=== PATIENT | male | born 1955 | race African-American/Black ===

== ENCOUNTER 2016-10-02 13:07 | Inpatient (IN) | payer OTHER ==
[2016-10-02 13:43] VITALS: BMI 29.5
--- NOTE | 2016-10-02 15:08 | HP ---
COWS - Scale Resting Pulse: 1= [place] 81-100 Sweatin=Flushed/Facial Moisture Restless Observation: 1= Difficult to Sit Still Pupil Size: 0= Normal to Room Light Bone or Joint Aches: 2= Severe Diffuse Aches Runny Nose/ Eye Tearin= Runny Nose/Eyes GI Upset > 30mins: 1= Stomach Cramp Tremor Observation: 2= Slight Tremor Visible Yawning Observation: 2= >3x During Session Anxiety or Irritability: 1=Feels Anxious/Irritable Goose Flesh Skin: 3=Piloerection COWS Score: 17 Admission ROS S - HPI Chief Complaint: I am here to detox. Allergies/Adverse Reactions: Allergies Allergy/AdvReac Type Severity Reaction Status Date / Time No Known Allergies Allergy Verified 10/02/16 14:11 History of Present Illness: pt is a 61yr old male with a history of heroin dependence only seeking detox for treatment. Exam Limitations: No Limitations - Ebola screening Have you traveled outside of the country in the last 21 days: No Have you had contact with anyone from an Ebola affected area: No Have you been sick,other than usual withdrawal symptoms: No Do you have a fever: No - Review of Systems Constitutional: Chills, Diaphoresis, Loss of Appetite, Night Sweats EENT: reports: No Symptoms Reported Respiratory: reports: No Symptoms reported Cardiac: reports: No Symptoms Reported GI: reports: Constipated, Poor Appetite, Poor Fluid Intake, Abdominal cramping : reports: No Symptoms Reported Musculoskeletal: reports: Back Pain Integumentary: reports: Flushing, Sweating Neuro: reports: Headache, Tingling, Tremors Endocrine: reports: Excessive Sweating, Flushing, Intolerance to Cold, Intolerance to Heat Hematology: reports: No Symptoms Reported Psychiatric: reports: Judgement Intact, Mood/Affect Appropiate, Orientated x3, Agitated, Anxious Other Systems: Reviewed and Negative Patient History - Patient Medical History Hx Anemia: No Hx Asthma: No Hx Chronic Obstructive Pulmonary Disease (COPD): No Hx Cancer: No Hx Cardiac Disorders: No Hx Congestive Heart Failure: No Hx Hypertension: Yes Hx Hypercholesterolemia: No Hx Pacemaker: No HX Cerebrovascular Accident: No Hx Seizures: No Hx Dementia: No Hx Diabetes: No Hx Gastrointestinal Disorders: No Hx Liver Disease: No Hx Genitourinary Disorders: Yes (prostate enlarge) Hx Sexually Transmitted Disorders: No Hx Renal Disease (ESRD): No Hx Thyroid Disease: No Hx Human Immunodeficiency Virus (HIV): No (negative) Hx Hepatitis C: No (negative/ received tx two years ago, undetectable today) Hx Depression: No Hx Suicide Attempt: No (denies) Hx Bipolar Disorder: No Hx Schizophrenia: No - Patient Surgical History Past Surgical History: No Hx Neurologic Surgery: No Hx Cataract Extraction: No Hx Cardiac Surgery: No Hx Lung Surgery: No Hx Breast Surgery: No Hx Breast Biopsy: No Hx Abdominal Surgery: No Hx Appendectomy: No Hx Cholecystectomy: No Hx Genitourinary Surgery: No Hx Section: No Hx Orthopedic Surgery: No Anesthesia Reaction: No - PPD History Previous Implant?: Yes Documented Results: Negative w/o proof PPD to be Administered?: Yes - Reproductive History Patient is a Female of Child Bearing Age (11 -55 yrs old): No - Smoking Cessation Smoking history: Current every day smoker Have you smoked in the past 12 months: Yes Aproximately how many cigarettes per day: 10 Cigars Per Day: 0 Hx Chewing Tobacco Use: No Initiated information on smoking cessation: Yes 'Breaking Loose' booklet given: 10/02/16 - Substance & Tx. History Hx Alcohol Use: No Hx Substance Use: Yes Substance Use Type: Heroin Hx Substance Use Treatment: Yes - Substances Abused Heroin Route: Injection Frequency: Daily Amount used: 3 bags Age of first use: 22 Date of Last Use: 10/02/16 Family Disease History - Family Disease History Family History: Denies Admission Physical Exam BHS - Vital Signs Vital Signs: Vital Signs - 24 hr 10/02/16 13:41 Temperature 97.5 F L Pulse Rate 85 Respiratory 18 Rate Blood Pressure 130/88 - Physical General Appearance: Yes: Appropriately Dressed, Moderate Distress, Tremorous, Irritable, Sweating, Anxious HEENTM: Yes: Normal Voice Respiratory: Yes: Lungs Clear, Normal Breath Sounds, No Respiratory Distress Neck: Yes: No masses,lesions,Nodules Breast: Yes: Within Normal Limits Cardiology: Yes: Regular Rhythm, Regular Rate, S1, S2 Abdominal: Yes: Normal Bowel Sounds, Non Tender, Soft Genitourinary: Yes: Within Normal Limits Back: Yes: Normal Inspection Musculoskeletal: Yes: full range of Motion, Back pain Extremities: Yes: Normal Capillary Refill, Normal Inspection, Non-Tender, Tremors Neurological: Yes: Fully Oriented, Alert, Normal Response Integumentary: Yes: Normal Color, Diaphoresis, Track Valerio Lymphatic: Yes: Within Normal Limits - Diagnostic (1) Opioid dependence with withdrawal Current Visit: Yes Status: Chronic (2) Hypertension Current Visit: Yes Status: Chronic Qualifiers: Hypertension type: essential hypertension Qualified Code(s): I10 - Essential (primary) hypertension (3) BPH (benign prostatic hyperplasia) Current Visit: Yes Status: Chronic Qualifiers: Prostatic enlargement morphology: unspecified morphology Lower urinary tract symptom presence: symptoms absent Qualified Code(s): N40.0 - Enlarged prostate without lower urinary tract symptoms Cleared for Admission [facility] - Detox or Rehab [facility] Level of Care: Medically Managed Detox Regimen/Protocol: Methadone [facility] Breath Alcohol Content Breath Alcohol Content: 0 Urine Drug Screen - Results Drug Screen Negative: No Urine Drug Screen Results: OPI-Opiates, BZO-Benzodiazepines, MTD-Methadone, OXY- Oxycodone
[2016-10-02] MEDS ORDERED: MAG HYDROX/AL HYDROX/SIMETH 30 ML UNIT-DOSE CUP PO PRN (15:10)
[2016-10-02] MEDS ORDERED: IBUPROFEN 400 MG TABLET (FP) PO PRN (15:10)
[2016-10-02] MEDS ORDERED: MENTHOL/PHENOL 1 EACH UD MM PRN (15:10)
[2016-10-02] MEDS ORDERED: ACETAMINOPHEN 325 MG TABLET (FP) PO PRN (15:10)
[2016-10-02] MEDS ORDERED: MAGNESIUM HYDROX 2400MG/30ML ORAL SUSPENSION 30 ML CUP PO PRN (15:10)
[2016-10-02] MEDS ORDERED: MAGNESIUM CITRATE 300 ML BOTTLE PO PRN (15:10)
[2016-10-02] MEDS ORDERED: P-EPHED 60MG/TRIPROLIDI 2.5MG TABLET PO PRN (15:10)
[2016-10-02] MEDS ORDERED: NICOTINE POLACRILEX 4 MG GUM BUC PRN (15:10)
[2016-10-02] MEDS ORDERED: LOPERAMIDE HCL 2 MG CAPSULE PO PRN (15:10)
[2016-10-02] MEDS ORDERED: guaiFENesin/D-METHORPHAN HB 10 ML UNIT-DOSE CUPS PO PRN (15:10)
[2016-10-02] MEDS ORDERED: METHADONE HCL 10 MG TABLET (FOR DETOX USE ONLY) PO ONE ×2 (15:30→23:00)
[2016-10-02] MEDS: diazePAM 5 MG TABLET PO PRN ×2 (15:38→22:20)
[2016-10-02] MEDS: GABAPENTIN 300 MG CAPSULE (FP) PO SCH ×2 (15:39→22:19)
[2016-10-02 19:24] LABS: URINE APPEARANCE CLEAR; URINE BILIRUBIN NEGATIVE (NEGATIVE); URINE COLOR YELLOW; URINE GLUCOSE (UA) NEGATIVE (NEGATIVE); URINE KETONE NEGATIVE (NEGATIVE); URINE LEUK ESTERASE NEGATIVE (NEGATIVE); URINE NITRITE NEGATIVE (NEGATIVE); URINE PROTEIN NEGATIVE (NEGATIVE); URINE UROBILINOGEN 2.0 E.U/dl E.U./dl (0.2-1.0)
[2016-10-02 19:25] LABS: URINE BLOOD 1+ (NEGATIVE)
[2016-10-02 19:41] LABS: URINE MUCUS RARE; URINE RBC 18 /hpf (0-3); URINE WBC 3 /hpf (3-5)
[2016-10-02] MEDS: THIAMINE HCL 100 MG TABLET (FP) PO SCH (22:19)
[2016-10-02] MEDS: diphenhydrAMINE HCL 50 MG CAPSULE PO PRN (22:20)
[2016-10-03] MEDS: diazePAM 5 MG TABLET PO PRN ×3 (05:32→22:27)
[2016-10-03] MEDS: GABAPENTIN 300 MG CAPSULE (FP) PO SCH ×3 (05:33→22:27)
[2016-10-03 09:37] LABS: HIV 1 & 2 AB NEGATIVE; HIV 1 AGp24 NEGATIVE
[2016-10-03] MEDS: TAMSULOSIN HCL 0.4 MG CAP.ER.24H (FP) PO SCH (09:47)
[2016-10-03] MEDS ORDERED: METHADONE HCL 10 MG TABLET (FOR DETOX USE ONLY) PO ONE (10:00)
[2016-10-03] MEDS: amLODIPine BESYLATE 5 MG TABLET (FP) PO SCH (10:10)
[2016-10-03] MEDS: TRIAMTERENE AND HCTZ - 37.5 MG/25 MG CAPSULE PO SCH (10:10)
[2016-10-03] MEDS: NICOTINE 21 MG/24 HOURS TOPICAL PATCH TD SCH (10:11)
[2016-10-03] MEDS: PRENATAL VITAMINS W/ FOLIC ACID TABLET (FP) PO SCH (10:11)
[2016-10-03 10:17] LABS: MCH 28.2 pg (25.7-33.7); MCHC 32.7 g/dl (32.0-35.9); MEAN CELL VOLUME 86.5 fl (80-96); MEAN PLT VOLUME 10.1 fl (7.5-11.1); RDW 15.4 % (11.9-15.9); WHITE BLOOD COUNT 6.6 K/mm3 (4.0-10.0)
[2016-10-03 10:33] LABS: ALBUMIN 4.1 g/dl (3.4-5.0); ALK PHOS 117 U/L (45-117); ANION GAP 6 (8-16); BILIRUBIN,TOTAL 0.6 mg/dL (0.2-1.0); CALCIUM 9.4 mg/dL (8.5-10.1); CO2 31 mmol/L (21-32); CREATININE 1.1 mg/dL (0.7-1.3); GLUCOSE,RANDOM 93 mg/dL (74-106); SGOT/AST 13 U/L (15-37); SGPT/ALT 14 U/L (12-78); TOT PROT 7.6 g/dl (6.4-8.2)
--- NOTE | 2016-10-03 10:59 | PN ---
BHS COWS - Scale Resting Pulse: 0= [place] 80 or Below Sweatin=Flushed/Facial Moisture Restless Observation: 1= Difficult to Sit Still Pupil Size: 0= Normal to Room Light Bone or Joint Aches: 2= Severe Diffuse Aches Runny Nose/ Eye Tearin= Runny Nose/Eyes GI Upset > 30mins: 2= Nausea/Diarrhea Tremor Observation of Outstretched Hands: 2= Slight Tremor Visible Yawning Observation: 1= 1-2x During Session Anxiety or Irritability: 2=Irritable/Anxious Goose Flesh Skin: 0=Smooth Skin COWS Score: 14 BHS Progress Note (SOAP) Subjective: Anxiety,tremors,sweating,interrupted sleep,restless Objective: 10/03/16 10:58 Vital Signs - 8 hr 10/03/16 10/03/16 10/03/16 03:30 06:05 09:11 Temperature 95.7 F L 97.8 F Pulse Rate 56 L 59 L Respiratory 18 16 18 Rate Blood Pressure 148/96 126/85 Laboratory Tests 10/02/16 10/02/16 10/03/16 13:00 13:00 06:00 WBC 6.6 RBC 4.93 Hgb 13.9 Hct 42.6 MCV 86.5 MCHC 32.7 RDW 15.4 MPV 10.1 Sodium Potassium Chloride Carbon Dioxide Anion Gap BUN Creatinine Creat Clearance w eGFR Random Glucose Calcium Total Bilirubin AST ALT Alkaline Phosphatase Total Protein Albumin Urine Color Yellow Urine Appearance Clear Urine pH 6.0 Ur Specific [place] 1.020 Urine Protein Negative Urine Glucose (UA) Negative Urine Ketones Negative Urine Blood 1+ H Urine Nitrite Negative Urine Bilirubin Negative Urine Urobilinogen 2.0 e.u/dl Ur Leukocyte Esterase Negative Urine RBC 18 Urine WBC 3 Ur Epithelial Cells Rare Urine Mucus Rare HIV 1&2 Antibody Screen Negative HIV P24 Antigen Negative 10/03/16 06:00 WBC RBC Hgb Hct MCV MCHC RDW MPV Sodium 142 Potassium 4.3 Chloride 105 Carbon Dioxide 31 Anion Gap 6 L BUN 9 Creatinine 1.1 Creat Clearance w eGFR > 60 Random Glucose 93 Calcium 9.4 Total Bilirubin 0.6 AST 13 L ALT 14 Alkaline Phosphatase 117 Total Protein 7.6 Albumin 4.1 Urine Color Urine Appearance Urine pH Ur Specific [place] Urine Protein Urine Glucose (UA) Urine Ketones Urine Blood Urine Nitrite Urine Bilirubin Urine Urobilinogen Ur Leukocyte Esterase Urine RBC Urine WBC Ur Epithelial Cells Urine Mucus HIV 1&2 Antibody Screen HIV P24 Antigen labs noted Assessment: 10/03/16 10:59 withdrawal sx. Plan: Continue detox
[2016-10-03 12:23] LABS: PLATELET COMMENT2 NO CLOTTING DETECTED; PLATELET ESTIMATE ADEQUATE (NORMAL)
--- NOTE | 2016-10-03 14:16 | EKG ---
Test Reason : Blood Pressure : / mmHG Vent. Rate : 063 BPM Atrial Rate : 063 BPM P-R Int : 162 ms QRS Dur : 100 ms QT Int : 416 ms P-R-T Axes : 059 -22 047 degrees QTc Int : 425 ms NORMAL SINUS RHYTHM POSSIBLE LEFT ATRIAL ENLARGEMENT BORDERLINE ECG NO PREVIOUS ECGS AVAILABLE Confirmed by HAO MEDLEY, UTE ([id number]) on 10/03/2016 2:16:22 PM Referred By: Confirmed By:UTE BUI MD
[2016-10-03] MEDS: THIAMINE HCL 100 MG TABLET (FP) PO SCH (22:27)
[2016-10-03] MEDS: diphenhydrAMINE HCL 50 MG CAPSULE PO PRN (22:27)
[2016-10-04] MEDS: diazePAM 5 MG TABLET PO PRN ×4 (05:37→22:04)
[2016-10-04] MEDS: GABAPENTIN 300 MG CAPSULE (FP) PO SCH ×3 (05:37→22:04)
[2016-10-04] MEDS: TAMSULOSIN HCL 0.4 MG CAP.ER.24H (FP) PO SCH (08:42)
[2016-10-04] MEDS ORDERED: METHADONE HCL 5 MG TABLET (FOR DETOX USE ONLY) PO ONE (10:00)
[2016-10-04] MEDS: NICOTINE 21 MG/24 HOURS TOPICAL PATCH TD SCH (10:34)
[2016-10-04] MEDS: TRIAMTERENE AND HCTZ - 37.5 MG/25 MG CAPSULE PO SCH (10:34)
[2016-10-04] MEDS: amLODIPine BESYLATE 5 MG TABLET (FP) PO SCH (10:34)
[2016-10-04] MEDS: PRENATAL VITAMINS W/ FOLIC ACID TABLET (FP) PO SCH (10:34)
[2016-10-04] MEDS: BACITRACIN 0.9 GM PACKET TP SCH ×2 (10:35→22:04)
[2016-10-04] MEDS: SULFAMETHOXAZOLE/TRIMETHOPRIM 800MG/160MG D.S. TABLET PO SCH ×2 (11:10→22:04)
--- NOTE | 2016-10-04 12:16 | PN ---
BHS COWS - Scale Resting Pulse: 0= [place] 80 or Below Sweatin=Flushed/Facial Moisture Restless Observation: 1= Difficult to Sit Still Pupil Size: 0= Normal to Room Light Bone or Joint Aches: 2= Severe Diffuse Aches Runny Nose/ Eye Tearin= None GI Upset > 30mins: 1= Stomach Cramp Tremor Observation of Outstretched Hands: 4= Gross Tremor/Twitching Yawning Observation: 1= 1-2x During Session Anxiety or Irritability: 2=Irritable/Anxious Goose Flesh Skin: 0=Smooth Skin COWS Score: 13 BHS Progress Note (SOAP) Subjective: Tremors, Sweating. Objective: PT. A & O X 2 (DISORIENTED ABOUT DAY / DATE). PT. OBSERVED AMBULATING ON UNIT. SWELLING NOTED AT SITES OF TRACK FUNEZ ON DORSUM OF LEFT HAND AND ON LEFT FOREARM. PATIENT DENIES ANY DISCOMFORT AT AFFECTED SITES. 10/04/16 12:12 Vital Signs Temperature 97.4 F L 10/04/16 09:36 Pulse Rate 72 10/04/16 09:36 Respiratory Rate 18 10/04/16 09:36 Blood Pressure 120/87 10/04/16 09:36 O2 Sat by Pulse Oximetry (%) Laboratory Last Values WBC 6.6 K/mm3 (4.0-10.0) 10/03/16 06:00 RBC 4.93 M/mm3 (4.00-5.60) 10/03/16 06:00 Hgb 13.9 GM/dL (11.7-16.9) 10/03/16 06:00 Hct 42.6 % (35.4-49) 10/03/16 06:00 MCV 86.5 fl (80-96) 10/03/16 06:00 MCHC 32.7 g/dl (32.0-35.9) 10/03/16 06:00 RDW 15.4 % (11.9-15.9) 10/03/16 06:00 Plt Count Not Reportable 10/03/16 06:00 MPV 10.1 fl (7.5-11.1) 10/03/16 06:00 Platelet Estimate Adequate (NORMAL) 10/03/16 06:00 Platelet Comment Slt plt clumping 10/03/16 06:00 Platelet Comment No clotting detected 10/03/16 06:00 Sodium 142 mmol/L (136-145) 10/03/16 06:00 Potassium 4.3 mmol/L (3.5-5.1) 10/03/16 06:00 Chloride 105 mmol/L (98-107) 10/03/16 06:00 Carbon Dioxide 31 mmol/L (21-32) 10/03/16 06:00 Anion Gap 6 (8-16) L 10/03/16 06:00 BUN 9 mg/dL (7-18) 10/03/16 06:00 Creatinine 1.1 mg/dL (0.7-1.3) 10/03/16 06:00 Creat Clearance w eGFR > 60 (>60) 10/03/16 06:00 Random Glucose 93 mg/dL (74-106) 10/03/16 06:00 Calcium 9.4 mg/dL (8.5-10.1) 10/03/16 06:00 Total Bilirubin 0.6 mg/dL (0.2-1.0) 10/03/16 06:00 AST 13 U/L (15-37) L 10/03/16 06:00 ALT 14 U/L (12-78) 10/03/16 06:00 Alkaline Phosphatase 117 U/L (45-117) 10/03/16 06:00 Total Protein 7.6 g/dl (6.4-8.2) 10/03/16 06:00 Albumin 4.1 g/dl (3.4-5.0) 10/03/16 06:00 Urine Color Yellow 10/02/16 13:00 Urine Appearance Clear 10/02/16 13:00 Urine pH 6.0 (5.0-8.0) 10/02/16 13:00 Ur Specific [place] 1.020 (1.001-1.035) 10/02/16 13:00 Urine Protein Negative (NEGATIVE) 10/02/16 13:00 Urine Glucose (UA) Negative (NEGATIVE) 10/02/16 13:00 Urine Ketones Negative (NEGATIVE) 10/02/16 13:00 Urine Blood 1+ (NEGATIVE) H 10/02/16 13:00 Urine Nitrite Negative (NEGATIVE) 10/02/16 13:00 Urine Bilirubin Negative (NEGATIVE) 10/02/16 13:00 Urine Urobilinogen 2.0 e.u/dl E.U./dl (0.2-1.0) 10/02/16 13:00 Ur Leukocyte Esterase Negative (NEGATIVE) 10/02/16 13:00 Urine RBC 18 /hpf (0-3) 10/02/16 13:00 Urine WBC 3 /hpf (3-5) 10/02/16 13:00 Ur Epithelial Cells Rare /hpf (FEW) 10/02/16 13:00 Urine Mucus Rare 10/02/16 13:00 RPR Titer Nonreactive (NONREACTIVE) 10/03/16 06:00 Hepatitis C Antibody >11.0 s/co ratio (0.0-0.9) H 10/02/16 13:00 HIV 1&2 Antibody Screen Negative 10/02/16 13:00 HIV P24 Antigen Negative 10/02/16 13:00 LABS NOTED. Assessment: 10/04/16 12:15 WITHDRAWAL SYMPTOMS. ABSCESS OF LEFT HAND. 10/04/16 12:17 Plan: CONTINUE DETOX. BACTRIM DS PO BID X 10 DAYS; BACITRACIN TO BE APPLIED TO DORSUM OF LEFT HAND BID.
[2016-10-04] MEDS: LIDOCAINE 5% TOPICAL PATCH TP SCH (17:10)
[2016-10-04] MEDS: THIAMINE HCL 100 MG TABLET (FP) PO SCH (22:04)
[2016-10-05] MEDS: diazePAM 5 MG TABLET PO PRN ×2 (05:28→14:14)
[2016-10-05] MEDS: GABAPENTIN 300 MG CAPSULE (FP) PO SCH ×3 (05:28→22:27)
[2016-10-05] MEDS: TAMSULOSIN HCL 0.4 MG CAP.ER.24H (FP) PO SCH (08:15)
[2016-10-05] MEDS ORDERED: METHADONE HCL 5 MG TABLET (FOR DETOX USE ONLY) PO ONE (10:00)
[2016-10-05] MEDS: amLODIPine BESYLATE 5 MG TABLET (FP) PO SCH (10:28)
[2016-10-05] MEDS: TRIAMTERENE AND HCTZ - 37.5 MG/25 MG CAPSULE PO SCH (10:28)
[2016-10-05] MEDS: SULFAMETHOXAZOLE/TRIMETHOPRIM 800MG/160MG D.S. TABLET PO SCH ×2 (10:28→22:27)
[2016-10-05] MEDS: PRENATAL VITAMINS W/ FOLIC ACID TABLET (FP) PO SCH (10:28)
[2016-10-05] MEDS: BACITRACIN 0.9 GM PACKET TP SCH ×2 (10:28→22:27)
[2016-10-05] MEDS: LIDOCAINE 5% TOPICAL PATCH TP SCH (10:29)
[2016-10-05] MEDS: NICOTINE 21 MG/24 HOURS TOPICAL PATCH TD SCH (10:29)
--- NOTE | 2016-10-05 12:31 | PN ---
BHS Progress Note (SOAP) Subjective: sweating,interrupted sleep,restless Objective: 10/05/16 12:29 Vital Signs - 8 hr 10/05/16 10/05/16 06:32 10:38 Temperature 96.5 F L 96.8 F L Pulse Rate 65 85 Respiratory 18 20 Rate Blood Pressure 142/95 129/87 Laboratory Tests 10/02/16 10/02/16 10/02/16 13:00 13:00 13:00 WBC RBC Hgb Hct MCV MCHC RDW Plt Count MPV Platelet Estimate Platelet Comment Sodium Potassium Chloride Carbon Dioxide Anion Gap BUN Creatinine Creat Clearance w eGFR Random Glucose Calcium Total Bilirubin AST ALT Alkaline Phosphatase Total Protein Albumin Urine Color Yellow Urine Appearance Clear Urine pH 6.0 Ur Specific [place] 1.020 Urine Protein Negative Urine Glucose (UA) Negative Urine Ketones Negative Urine Blood 1+ H Urine Nitrite Negative Urine Bilirubin Negative Urine Urobilinogen 2.0 e.u/dl Ur Leukocyte Esterase Negative Urine RBC 18 Urine WBC 3 Ur Epithelial Cells Rare Urine Mucus Rare RPR Titer Hepatitis C Antibody >11.0 H HIV 1&2 Antibody Screen Negative HIV P24 Antigen Negative 10/03/16 10/03/16 10/03/16 06:00 06:00 06:00 WBC 6.6 RBC 4.93 Hgb 13.9 Hct 42.6 MCV 86.5 MCHC 32.7 RDW 15.4 Plt Count Not Reportable MPV 10.1 Platelet Estimate Adequate Platelet Comment No clotting detected Sodium 142 Potassium 4.3 Chloride 105 Carbon Dioxide 31 Anion Gap 6 L BUN 9 Creatinine 1.1 Creat Clearance w eGFR > 60 Random Glucose 93 Calcium 9.4 Total Bilirubin 0.6 AST 13 L ALT 14 Alkaline Phosphatase 117 Total Protein 7.6 Albumin 4.1 Urine Color Urine Appearance Urine pH Ur Specific [place] Urine Protein Urine Glucose (UA) Urine Ketones Urine Blood Urine Nitrite Urine Bilirubin Urine Urobilinogen Ur Leukocyte Esterase Urine RBC Urine WBC Ur Epithelial Cells Urine Mucus RPR Titer Nonreactive Hepatitis C Antibody HIV 1&2 Antibody Screen HIV P24 Antigen labs noted,pt. has hep c & completed treatment a year ago. Assessment: 10/05/16 12:30 Withdrawal sx. Plan: Continue detox
[2016-10-05] MEDS: hydrOXYzine PAMOATE 50 MG CAPSULE (FP) PO PRN (17:16)
[2016-10-05] MEDS: THIAMINE HCL 100 MG TABLET (FP) PO SCH (22:27)
[2016-10-06] MEDS: GABAPENTIN 300 MG CAPSULE (FP) PO SCH ×3 (05:33→22:37)
[2016-10-06] MEDS: TAMSULOSIN HCL 0.4 MG CAP.ER.24H (FP) PO SCH (07:36)
[2016-10-06] MEDS ORDERED: METHADONE HCL 10 MG TABLET (FOR DETOX USE ONLY) PO ONE (10:00)
[2016-10-06] MEDS: amLODIPine BESYLATE 5 MG TABLET (FP) PO SCH (10:23)
[2016-10-06] MEDS: TRIAMTERENE AND HCTZ - 37.5 MG/25 MG CAPSULE PO SCH (10:23)
[2016-10-06] MEDS: BACITRACIN 0.9 GM PACKET TP SCH ×2 (10:23→22:37)
[2016-10-06] MEDS: NICOTINE 21 MG/24 HOURS TOPICAL PATCH TD SCH (10:23)
[2016-10-06] MEDS: PRENATAL VITAMINS W/ FOLIC ACID TABLET (FP) PO SCH (10:23)
[2016-10-06] MEDS: LIDOCAINE 5% TOPICAL PATCH TP SCH (10:24)
[2016-10-06] MEDS: SULFAMETHOXAZOLE/TRIMETHOPRIM 800MG/160MG D.S. TABLET PO SCH ×2 (11:42→22:37)
--- NOTE | 2016-10-06 14:59 | PN ---
BHS Progress Note (SOAP) Subjective: Anxious, restless, sweating, interrupted sleep Objective: 10/06/16 14:56 Last Vital Signs Temp Pulse Resp BP Pulse Ox 96 F L 84 20 128/90 10/06/16 13:55 10/06/16 13:55 10/06/16 13:55 10/06/16 13:55 Laboratory Tests 10/02/16 10/02/16 10/02/16 13:00 13:00 13:00 WBC RBC Hgb Hct MCV MCHC RDW Plt Count MPV Platelet Estimate Platelet Comment Sodium Potassium Chloride Carbon Dioxide Anion Gap BUN Creatinine Creat Clearance w eGFR Random Glucose Calcium Total Bilirubin AST ALT Alkaline Phosphatase Total Protein Albumin Urine Color Yellow Urine Appearance Clear Urine pH 6.0 Ur Specific [place] 1.020 Urine Protein Negative Urine Glucose (UA) Negative Urine Ketones Negative Urine Blood 1+ H Urine Nitrite Negative Urine Bilirubin Negative Urine Urobilinogen 2.0 e.u/dl Ur Leukocyte Esterase Negative Urine RBC 18 Urine WBC 3 Ur Epithelial Cells Rare Urine Mucus Rare RPR Titer Hepatitis C Antibody >11.0 H HIV 1&2 Antibody Screen Negative HIV P24 Antigen Negative 10/03/16 10/03/16 10/03/16 06:00 06:00 06:00 WBC 6.6 RBC 4.93 Hgb 13.9 Hct 42.6 MCV 86.5 MCHC 32.7 RDW 15.4 Plt Count Not Reportable MPV 10.1 Platelet Estimate Adequate Platelet Comment No clotting detected Sodium 142 Potassium 4.3 Chloride 105 Carbon Dioxide 31 Anion Gap 6 L BUN 9 Creatinine 1.1 Creat Clearance w eGFR > 60 Random Glucose 93 Calcium 9.4 Total Bilirubin 0.6 AST 13 L ALT 14 Alkaline Phosphatase 117 Total Protein 7.6 Albumin 4.1 Urine Color Urine Appearance Urine pH Ur Specific [place] Urine Protein Urine Glucose (UA) Urine Ketones Urine Blood Urine Nitrite Urine Bilirubin Urine Urobilinogen Ur Leukocyte Esterase Urine RBC Urine WBC Ur Epithelial Cells Urine Mucus RPR Titer Nonreactive Hepatitis C Antibody HIV 1&2 Antibody Screen HIV P24 Antigen Labs noted: UA: 1+ blood and RBC 18 Assessment: 10/06/16 14:58 Withdrawal symptoms Noted with microscopic hematuria Plan: Continue detox Microscopic hematuria: encouraged to drink more water, repeat UA
[2016-10-06] MEDS: THIAMINE HCL 100 MG TABLET (FP) PO SCH (22:37)
[2016-10-06] MEDS: hydrOXYzine PAMOATE 50 MG CAPSULE (FP) PO PRN (22:38)
[2016-10-07] MEDS ORDERED: METHADONE HCL 5 MG TABLET (FOR DETOX USE ONLY) PO ONE (06:00)
[2016-10-07] MEDS: GABAPENTIN 300 MG CAPSULE (FP) PO SCH (06:03)
[2016-10-07] MEDS: PRENATAL VITAMINS W/ FOLIC ACID TABLET (FP) PO SCH (09:05)
[2016-10-07] MEDS: BACITRACIN 0.9 GM PACKET TP SCH (09:05)
[2016-10-07] MEDS: amLODIPine BESYLATE 5 MG TABLET (FP) PO SCH (09:05)
[2016-10-07] MEDS: TRIAMTERENE AND HCTZ - 37.5 MG/25 MG CAPSULE PO SCH (09:05)
[2016-10-07] MEDS: TAMSULOSIN HCL 0.4 MG CAP.ER.24H (FP) PO SCH (09:05)
[2016-10-07] MEDS: NICOTINE 21 MG/24 HOURS TOPICAL PATCH TD SCH (09:06)
--- NOTE | 2016-10-07 09:14 | DS ---
[facility] Detox Discharge Summary Admission Date: 10/02/16 Discharge Date: 10/07/16 - History Present History: Opioid Dependence Pertinent Past History: HTN BPH - Physical Exam Results Vital Signs: Vital Signs Temperature 96.8 F L 10/07/16 06:43 Pulse Rate 74 10/07/16 06:43 Respiratory Rate 18 10/07/16 06:43 Blood Pressure 111/84 10/07/16 06:43 O2 Sat by Pulse Oximetry (%) Pertinent Admission Physical Exam Findings: Withdrawal sx Laboratory Last Values WBC 6.6 K/mm3 (4.0-10.0) 10/03/16 06:00 RBC 4.93 M/mm3 (4.00-5.60) 10/03/16 06:00 Hgb 13.9 GM/dL (11.7-16.9) 10/03/16 06:00 Hct 42.6 % (35.4-49) 10/03/16 06:00 MCV 86.5 fl (80-96) 10/03/16 06:00 MCHC 32.7 g/dl (32.0-35.9) 10/03/16 06:00 RDW 15.4 % (11.9-15.9) 10/03/16 06:00 Plt Count Not Reportable 10/03/16 06:00 MPV 10.1 fl (7.5-11.1) 10/03/16 06:00 Platelet Estimate Adequate (NORMAL) 10/03/16 06:00 Platelet Comment Slt plt clumping 10/03/16 06:00 Platelet Comment No clotting detected 10/03/16 06:00 Sodium 142 mmol/L (136-145) 10/03/16 06:00 Potassium 4.3 mmol/L (3.5-5.1) 10/03/16 06:00 Chloride 105 mmol/L (98-107) 10/03/16 06:00 Carbon Dioxide 31 mmol/L (21-32) 10/03/16 06:00 Anion Gap 6 (8-16) L 10/03/16 06:00 BUN 9 mg/dL (7-18) 10/03/16 06:00 Creatinine 1.1 mg/dL (0.7-1.3) 10/03/16 06:00 Creat Clearance w eGFR > 60 (>60) 10/03/16 06:00 Random Glucose 93 mg/dL (74-106) 10/03/16 06:00 Calcium 9.4 mg/dL (8.5-10.1) 10/03/16 06:00 Total Bilirubin 0.6 mg/dL (0.2-1.0) 10/03/16 06:00 AST 13 U/L (15-37) L 10/03/16 06:00 ALT 14 U/L (12-78) 10/03/16 06:00 Alkaline Phosphatase 117 U/L (45-117) 10/03/16 06:00 Total Protein 7.6 g/dl (6.4-8.2) 10/03/16 06:00 Albumin 4.1 g/dl (3.4-5.0) 10/03/16 06:00 Urine Color Yellow 10/02/16 13:00 Urine Appearance Clear 10/02/16 13:00 Urine pH 6.0 (5.0-8.0) 10/02/16 13:00 Ur Specific [place] 1.020 (1.001-1.035) 10/02/16 13:00 Urine Protein Negative (NEGATIVE) 10/02/16 13:00 Urine Glucose (UA) Negative (NEGATIVE) 10/02/16 13:00 Urine Ketones Negative (NEGATIVE) 10/02/16 13:00 Urine Blood 1+ (NEGATIVE) H 10/02/16 13:00 Urine Nitrite Negative (NEGATIVE) 10/02/16 13:00 Urine Bilirubin Negative (NEGATIVE) 10/02/16 13:00 Urine Urobilinogen 2.0 e.u/dl E.U./dl (0.2-1.0) 10/02/16 13:00 Ur Leukocyte Esterase Negative (NEGATIVE) 10/02/16 13:00 Urine RBC 18 /hpf (0-3) 10/02/16 13:00 Urine WBC 3 /hpf (3-5) 10/02/16 13:00 Ur Epithelial Cells Rare /hpf (FEW) 10/02/16 13:00 Urine Mucus Rare 10/02/16 13:00 RPR Titer Nonreactive (NONREACTIVE) 10/03/16 06:00 Hepatitis C Antibody >11.0 s/co ratio (0.0-0.9) H 10/02/16 13:00 HIV 1&2 Antibody Screen Negative 10/02/16 13:00 HIV P24 Antigen Negative 10/02/16 13:00 labs noted. Pt. has Hep C and was treated a year ago with Analilia Pt. asked to be tested because he did not understand that the antibody test will always be positive. He will F/U with his doctors for a viral load. - Treatment Hospital Course: Detox Protocol Followed, Detoxed Safely, Responded well, Discharged Condition Good, Rehab Referral Accepted Patient has Accepted a Rehab Referral to: [facility] - Medication Discharge Medications: Ambulatory Orders Amlodipine Besylate [Norvasc -] 5 mg PO DAILY 10/02/16 Gabapentin [Neurontin -] 300 mg PO Q8H 10/02/16 Tamsulosin HCl [Flomax] 0.4 mg PO DAILY 10/02/16 Triamterene/Hydrochlorothiazid [Triamterene-Hctz 37.5-25 mg Cp] 1 each PO DAILY 10/02/16 - Diagnosis (1) BPH (benign prostatic hyperplasia) Current Visit: Yes Status: Chronic Qualifiers: Prostatic enlargement morphology: unspecified morphology Lower urinary tract symptom presence: symptoms absent Qualified Code(s): N40.0 - Enlarged prostate without lower urinary tract symptoms (2) Hypertension Current Visit: Yes Status: Chronic Qualifiers: Hypertension type: essential hypertension Qualified Code(s): I10 - Essential (primary) hypertension (3) Opioid dependence with withdrawal Current Visit: Yes Status: Chronic - AMA Did Patient Leave Against Medical Advice: No
[2016-10-07 09:28] VITALS: BP 105/73; PULSE 86; TEMP 96.9
== END 2016-10-07 09:34 | disposition home or self-care (01) | DRG 897 ==
LOC: YASAS 13:07 → Y3N 15:11
PROVIDERS: ADMIT Internal Medicine; ATTEND Internal Medicine
PROC: HZ2ZZZZ Detoxification Services for Substance Abuse Treatment (ICD-10-PCS; principal; 2016-10-02)
DX: F11.23 Opioid dependence with withdrawal (principal); L02.512 Cutaneous abscess of left hand; F17.210 Nicotine dependence, cigarettes, uncomplicated; N40.0 Benign prostatic hyperplasia without lower urinary tract symptoms; I10 Essential (primary) hypertension; R31.29 Other microscopic hematuria; Z86.19 Personal history of other infectious and parasitic diseases
CPT/HCPCS: 36415; 80053; 81003; 81015; 85027; 86593; 87389; 87522; 93005; 93010